=== PATIENT | male | born 1960 | race Caucasian/White ===

== ENCOUNTER 2017-02-21 04:09 | Inpatient (IN) | payer BC ==
[2017-02-21] MEDS ORDERED: Morphine 2 MG/ML Syringe IVPUSH ONE (04:35)
[2017-02-21] MEDS ORDERED: Ondansetron 4 MG Tab.DIS PO ONE (04:36)
[2017-02-21] MEDS ORDERED: Morphine 10 MG/ML Syringe SUBCUT STA (04:48)
--- NOTE | 2017-02-21 04:53 | EDM.PDOC ---
ED HPI GI/ABDOMINAL - General Chief Complaint: Abdominal Pain Stated Complaint: ABD PAIN Time Seen by Provider: 02/21/17 04:26 Source: Reports: Patient - History of Present Illness INITIAL COMMENTS - FREE TEXT/NARRATIVE: This is a 56yo M here for left lower quadrant abdominal pain that started abruptly around 3am. Patient states the pain is 9/10 and fluctuates to a 6/10 and back. He states he ate a [employer] seafood sub in the evening and drank some milk at night but threw the milk up. He is nauseated and curled in pain. Patient denies chest pain, denies sob. He denies any recent abnormal BM. Symptom Onset Date: 02/21/17 Symptom Onset Time: 03:00 Timing/Duration: Reports: Getting worse Location: LLQ Quality: Reports: ache Severity: severe Associated Symptoms: Reports: nausea/vomiting - Related Data Allergies/ADRs: Allergies Allergy/AdvReac Type Severity Reaction Status Date / Time No Known Allergies Allergy Verified 10/17/16 11:28 Home Meds: Home Meds Aspirin/Calcium Carbonate/Mag [Aspirin Buffered 325 mg Tab] 325 mg PO DAILY [History] Citalopram Hydrobromide [Citalopram HBr] 10 mg PO BEDTIME 02/21/17 [History] Lisinopril 20 mg PO BEDTIME 02/21/17 [History] Tamsulosin [Flomax] 0.4 mg PO BEDTIME 02/21/17 [History] atorvaSTATin Calcium [Atorvastatin Calcium] 80 mg PO BEDTIME 02/21/17 [History] metFORMIN HCl [Metformin HCl] 500 mg PO BIDMEALS 02/21/17 [History] Amoxicillin/Potassium Clav [Augmentin 875-125 Tablet] 1 each PO BID #20 tablet 02/22/17 [Rx] metroNIDAZOLE [Metronidazole] 500 mg PO TID #30 tablet 02/22/17 [Rx] Past Medical History Cardiovascular History: Reports: High cholesterol, Hypertension Genitourinary History: Reports: Renal calculus Neurological History: Reports: TIA Psychiatric History: Reports: Depression Endocrine/Metabolic History: Reports: Diabetes, type II - Past Surgical History GI Surgical History: Reports: Appendectomy, Colonoscopy Social & Family History - Tobacco Use Smoking Status *Q: Current Every Day Smoker Years of Tobacco use: 34 Packs/Tins Daily: 0.3 - Recreational Drug Use Recreational Drug Use: No ED ROS GENERAL - Review of Systems Review Of Systems: ROS reveals no pertinent complaints other than HPI. ED EXAM, GI/ABD - Physical Exam Exam: See Below Exam Limited By: No limitations General Appearance: alert, WD/WN, moderate distress, severe distress Eyes: bilateral: EOMI Ears: normal external exam Nose: normal inspection Throat/Mouth: Normal inspection Head: atraumatic, normocephalic Neck: normal inspection Respiratory/Chest: no respiratory distress, lungs clear, normal breath sounds Cardiovascular: normal peripheral pulses, regular rate, rhythm GI/Abdominal: normal bowel sounds, soft, tenderness Back Exam: normal inspection, full range of motion Extremities: normal inspection, normal range of motion, non-tender Neurological: alert, oriented, CN II-XII intact, normal cognition, normal gait, normal reflexes, no motor/sensory deficits Psychiatric: normal affect, normal mood Skin Exam: Warm, Dry, Intact Course - Vital Signs Last Recorded V/S: Last Vital Signs Temp 36.6 C 02/22/17 12:45 Pulse 78 02/22/17 12:45 Resp 16 02/22/17 12:45 BP 125/62 02/22/17 12:45 Pulse Ox 98 02/22/17 12:45 - Orders/Labs/Meds Meds: Medications Discontinued Medications Generic Name Dose Route Start Last Admin Trade Name Esteban PRN Reason Stop Dose Admin Hydromorphone HCl 4 mg 02/21/17 05:07 02/21/17 05:27 Dilaudid IVPUSH 02/21/17 05:08 4 mg ONETIME ONE Administration Hydromorphone HCl Confirm 02/21/17 05:12 Dilaudid Administered 02/21/17 05:13 Dose 4 mg .ROUTE .STK-MED ONE Hydromorphone HCl 4 mg 02/21/17 05:30 02/21/17 17:48 Dilaudid IV 2 mg Q2H PRN Administration Pain (severe 7-10) Sodium Chloride 1,000 mls @ 200 mls/hr 02/21/17 05:15 02/21/17 22:34 Normal Saline IV 200 mls/hr ASDIRECTED IKE Administration Ceftriaxone Sodium 1 gm/ 50 mls @ 200 mls/hr 02/21/17 05:45 02/21/17 06:53 Sodium Chloride IV 200 mls/hr Q24H IKE Administration Metronidazole 500 mg/ Premix 100 mls @ 100 mls/hr 02/21/17 05:45 02/21/17 16: 28 IV 100 mls/hr Q8H IKE Administration Ceftriaxone Sodium 1 gm/ 50 mls @ 200 mls/hr 02/22/17 08:00 02/22/17 07:34 Sodium Chloride IV 200 mls/hr Q24H IKE Administration Metronidazole 500 mg/ Premix 100 mls @ 100 mls/hr 02/21/17 22:00 02/22/17 05: 59 IV 100 mls/hr Q8H IKE Administration Metronidazole Confirm 02/21/17 21:56 02/21/17 22:31 Flagyl 500 Mg In Ns 100 Ml Administered 02/21/17 21:57 Not Given Dose 100 mls @ as directed .ROUTE .STK-MED ONE Morphine Sulfate 4 mg 02/21/17 04:35 02/21/17 04:35 Morphine IVPUSH 02/21/17 04:36 4 mg ONETIME ONE Administration Morphine Sulfate 6 mg 02/21/17 04:48 02/21/17 04:50 Morphine SUBCUT 02/21/17 04:49 6 mg NOW STA Administration Ondansetron HCl 4 mg 02/21/17 04:36 02/21/17 04:35 Zofran Odt PO 02/21/17 04:37 4 mg ONETIME ONE Administration Ondansetron HCl 4 mg 02/21/17 05:10 02/21/17 21:30 Zofran IVPUSH 4 mg Q4H PRN Administration Nausea/Vomiting Sodium Chloride 10 ml 02/21/17 05:30 02/22/17 10:06 Saline Flush FLUSH 10 ml ASDIRECTED PRN Administration Keep Vein Open Departure - Departure Time of Disposition: 04:30 Disposition: Admitted As Inpatient 67 Condition: fair Clinical Impression: Enteritis, Ileus Abdominal pain Qualifiers: Abdominal location: left lower quadrant Qualified Code(s): R10.32 - Left lower quadrant pain - Problem List & Annotations (1) Enteritis SNOMED Code(s): 25487821 Code(s): K52.9 - NONINFECTIVE GASTROENTERITIS AND COLITIS, UNSPECIFIED Status: Acute Priority: High (2) Ileus SNOMED Code(s): 403230368 Code(s): K56.7 - ILEUS, UNSPECIFIED Status: Resolved Priority: High (3) Leukocytosis SNOMED Code(s): 886893256, 849054658 Code(s): D72.829 - ELEVATED WHITE BLOOD CELL COUNT, UNSPECIFIED Status: Acute Priority: Medium (4) Abdominal pain SNOMED Code(s): 67064907 Code(s): R10.9 - UNSPECIFIED ABDOMINAL PAIN Status: Acute Priority: High Qualifiers: Abdominal location: left lower quadrant Qualified Code(s): R10.32 - Left lower quadrant pain - Problem List Review Problem List Initiated/Reviewed/Updated: Yes - Assessment/Plan Plan: Patient admitted for IV fluids, antibiotics and pain management. Counseled on Enteritis and complications, antibiotics use and side effects, pain management and NPO.
[2017-02-21] MEDS ORDERED: HYDROmorphone 2 MG/ML Syringe IVPUSH ONE (05:07)
[2017-02-21] MEDS ORDERED: HYDROmorphone 4 MG/ML Syringe ONE (05:12)
[2017-02-21] MEDS ORDERED: Sodium Chloride 0.9% 10 ML Syringe FLUSH PRN (05:30)
[2017-02-21] MEDS: Sodium Chloride 0.9% 1,000 ML IV SCH ×3 (05:31→22:34)
[2017-02-21] MEDS ORDERED: cefTRIAXone 1 GM in Sodium Chloride 0.9% 50 ML IV SCH (05:45)
[2017-02-21] MEDS: HYDROmorphone 2 MG/ML Syringe IV PRN ×3 (06:35→17:48)
[2017-02-21] MEDS: metroNIDAZOLE/Normal Saline 500 MG in Premix Bag 1 BAG IV SCH ×3 (07:37→21:57)
--- NOTE | 2017-02-21 08:35 | CT ---
DATE OF SERVICE: 02/21/2017 CLINICAL DATA: Abd pain left lower quad. UNENHANCED ABDOMEN AND PELVIC CT Multislice acquisition through the abdomen and pelvis without IV or oral contrast was performed. Comparison is made to a prior exam dated 06/05/2010. The lung bases are clear. The unenhanced liver appears normal. The gallbladder appears normal. The spleen appears normal. The pancreas appears normal. The right and left adrenals appear normal. The right and left kidneys appear normal. No nephrocalcinosis or nephrolithiasis. No hydronephrosis or hydroureter. The bladder is fluid filled and appears normal. The appendix is not visualized. No definite evidence of appendicitis. There are multiple fluid filled loops of small bowel within the right lower abdomen and pelvis with apparent mural thickening. There is also fat stranding and fat infiltration of the adjacent mesentery. They are not dilated. A localized ileus or early or partial obstruction should be considered. Other infectious or inflammatory processes or even ischemia should at least be considered. No pneumatosis. No free air. No free fluid. No adenopathy. No aortic aneurysm. There are bilateral fat containing inguinal hernias. No other significant findings. [id number] [facility]
[2017-02-21] MEDS: Ondansetron 4 MG/2 ML SDV IVPUSH PRN ×3 (09:25→21:30)
[2017-02-21] MEDS ORDERED: metroNIDAZOLE/Normal Saline 100 ML ONE (21:56)
--- NOTE | 2017-02-22 05:57 | PCM.PN ---
- General Info Date of Service: 02/22/17 Subjective Update: Patient states his symptoms have mostly resolved and he feels basically normal. He denies any abdominal pain but does feel some discomfort he attributes to vomiting. He states his appetite has improved and has been doing a trial of clear liquids since very early this AM. Patient has been tolerating liquids. Patient has only had one pain medication use since very early this am and has not needed another one since. - Review of Systems General: Reports: No Symptoms HEENT: Reports: no symptoms Pulmonary: Reports: no symptoms Cardiovascular: Reports: No Symptoms Gastrointestinal: Reports: Abdominal pain Genitourinary: Reports: no symptoms Musculoskeletal: Reports: no symptoms Skin: Reports: no symptoms Neurological: Reports: No Symptoms - Patient Data Vitals - most recent: Last Vital Signs Temp 36.9 C 02/22/17 01:00 Pulse 86 02/22/17 01:00 Resp 16 02/22/17 01:00 BP 129/72 02/22/17 01:00 Pulse Ox 98 02/22/17 01:00 Weight - most recent: 113.398 kg I&O - last 24 hours: Intake & Output 02/21/17 02/21/17 02/22/17 14:59 22:59 06:59 Intake Total 840 Output Total 1440 Balance -600 Lab Results last 24 hrs: Laboratory Results - last 24 hr 02/21/17 02/21/17 02/21/17 Range/Units 09:10 09:10 09:10 WBC 22.2 H* (4.0-11.0) K/uL RBC 5.11 (4.50-6.50) M/uL Hgb 15.7 (13.0-18.0) g/dL Hct 47.1 (40.0-54.0) % MCV 92 (76-96) fL MCH 30.7 (27.0-32.0) pg MCHC 33.3 (31.0-35.0) g/dL RDW 14.4 (11.0-16.0) % Plt Count 288 (150-400) K/uL MPV 10.9 H (6.0-10.0) fL Neut % (Auto) 89.6 H (45.0-70.0) % Lymph % (Auto) 6.0 L (20.0-40.0) % Morgan % (Auto) 4.2 (3.0-10.0) % Eos % (Auto) 0.0 L (1.0-5.0) % Baso % (Auto) 0.2 (0.0-0.5) % Neut # (Auto) 19.86 H (2.00-7.50) K/uL Lymph # (Auto) 1.32 L (1.50-4.00) K/uL Morgan # (Auto) 0.94 H (0.20-0.80) K/uL Eos # (Auto) 0.01 L (0.04-0.40) K/uL Baso # (Auto) 0.05 (0.02-0.10) K/uL Sodium 141 (136-145) mmol/L Potassium 4.2 (3.5-5.1) mmol/L Chloride 105 (98-107) mmol/L Carbon Dioxide 26.3 (21.0-32.0) mmol/L Anion Gap 13.9 (5.0-15.0) mmol/L BUN 17 D (8-26) mg/dL Creatinine 0.90 (0.70-1.30) mg/dL Est Cr Clr Drug Dosing 83.69 mL/min Estimated GFR (MDRD) > 60 (>60) MLS/MIN BUN/Creatinine Ratio 18.9 (6-25) Glucose 186 H D (74-100) mg/dL Hemoglobin A1c (4.5-6.2) % Calcium 8.1 L (8.5-10.1) mg/dL Magnesium 1.6 L (1.8-2.4) mg/dL Total Bilirubin 0.2 D (0.0-1.0) mg/dL AST 24 (15-37) U/L ALT 46 (12-78) U/L Alkaline Phosphatase 71 (46-116) U/L Lactate Dehydrogenase 241 H (85-227) U/L Total Protein 6.7 (6.4-8.2) g/dL Albumin 3.4 (3.4-5.0) g/dL Globulin 3.3 (2.2-4.2) g/dL Albumin/Globulin Ratio 1.0 (0.8-2.0) Lipase (73-393) U/L 04/15/17 04/15/17 Range/Units 09:10 09:10 WBC (4.0-11.0) K/uL RBC (4.50-6.50) M/uL Hgb (13.0-18.0) g/dL Hct (40.0-54.0) % MCV (76-96) fL MCH (27.0-32.0) pg MCHC (31.0-35.0) g/dL RDW (11.0-16.0) % Plt Count (150-400) K/uL MPV (6.0-10.0) fL Neut % (Auto) (45.0-70.0) % Lymph % (Auto) (20.0-40.0) % Morgan % (Auto) (3.0-10.0) % Eos % (Auto) (1.0-5.0) % Baso % (Auto) (0.0-0.5) % Neut # (Auto) (2.00-7.50) K/uL Lymph # (Auto) (1.50-4.00) K/uL Morgan # (Auto) (0.20-0.80) K/uL Eos # (Auto) (0.04-0.40) K/uL Baso # (Auto) (0.02-0.10) K/uL Sodium (136-145) mmol/L Potassium (3.5-5.1) mmol/L Chloride (98-107) mmol/L Carbon Dioxide (21.0-32.0) mmol/L Anion Gap (5.0-15.0) mmol/L BUN (8-26) mg/dL Creatinine (0.70-1.30) mg/dL Est Cr Clr Drug Dosing mL/min Estimated GFR (MDRD) (>60) MLS/MIN BUN/Creatinine Ratio (6-25) Glucose (74-100) mg/dL Hemoglobin A1c 6.2 (4.5-6.2) % Calcium (8.5-10.1) mg/dL Magnesium (1.8-2.4) mg/dL Total Bilirubin (0.0-1.0) mg/dL AST (15-37) U/L ALT (12-78) U/L Alkaline Phosphatase (46-116) U/L Lactate Dehydrogenase (85-227) U/L Total Protein (6.4-8.2) g/dL Albumin (3.4-5.0) g/dL Globulin (2.2-4.2) g/dL Albumin/Globulin Ratio (0.8-2.0) Lipase 73 (73-393) U/L Med Orders - Current: Current Medications Hydromorphone HCl (Dilaudid) 4 mg IV Q2H PRN PRN Reason: Pain (severe 7-10) Last Admin: 02/21/17 17:48 Dose: 2 mg Sodium Chloride (Normal Saline) 1,000 mls @ 200 mls/hr IV ASDIRECTED IKE Last Admin: 02/21/17 22:34 Dose: 200 mls/hr Ceftriaxone Sodium 1 gm/ (Sodium Chloride) 50 mls @ 200 mls/hr IV Q24H IKE Metronidazole 500 mg/ Premix 100 mls @ 100 mls/hr IV Q8H [facility] Last Admin: 02/21/17 21:57 Dose: 100 mls/hr Ondansetron HCl (Zofran) 4 mg IVPUSH Q4H PRN PRN Reason: Nausea/Vomiting Last Admin: 02/21/17 21:30 Dose: 4 mg Sodium Chloride (Saline Flush) 10 ml FLUSH ASDIRECTED PRN PRN Reason: Keep Vein Open Discontinued Medications Hydromorphone HCl (Dilaudid) 4 mg IVPUSH ONETIME ONE Stop: 02/21/17 05:08 Last Admin: 02/21/17 05:27 Dose: 4 mg Hydromorphone HCl (Dilaudid) Confirm Administered Dose 4 mg .ROUTE .STK-MED ONE Stop: 02/21/17 05:13 Ceftriaxone Sodium 1 gm/ (Sodium Chloride) 50 mls @ 200 mls/hr IV Q24H [facility] Last Admin: 02/21/17 06:53 Dose: 200 mls/hr Metronidazole 500 mg/ Premix 100 mls @ 100 mls/hr IV Q8H [facility] Last Admin: 02/21/17 16:28 Dose: 100 mls/hr Metronidazole (Flagyl 500 Mg In Ns 100 Ml) Confirm Administered Dose 100 mls @ as directed .ROUTE .STK-MED ONE Stop: 02/21/17 21:57 Last Admin: 02/21/17 22:31 Dose: Not Given Morphine Sulfate (Morphine) 4 mg IVPUSH ONETIME ONE Stop: 02/21/17 04:36 Last Admin: 02/21/17 04:35 Dose: 4 mg Morphine Sulfate (Morphine) 6 mg SUBCUT NOW STA Stop: 02/21/17 04:49 Last Admin: 02/21/17 04:50 Dose: 6 mg Ondansetron HCl (Zofran Odt) 4 mg PO ONETIME ONE Stop: 02/21/17 04:37 Last Admin: 02/21/17 04:35 Dose: 4 mg - Exam General: alert, oriented, cooperative HEENT: Pupils equal, Pupils reactive Neck: supple Lungs: Clear to auscultation, Normal respiratory effort Cardiovascular: Regular Rate, Regular Rhythm Abdomen: bowel sounds present, soft, no tenderness Back Exam: normal inspection, full range of motion Extremities: no edema - Problem List & Annotations (1) Abdominal pain SNOMED Code(s): 54409645 Code(s): R10.9 - UNSPECIFIED ABDOMINAL PAIN Status: Acute Priority: High Qualifiers: Abdominal location: left lower quadrant Qualified Code(s): R10.32 - Left lower quadrant pain (2) Enteritis SNOMED Code(s): 47830106 Code(s): K52.9 - NONINFECTIVE GASTROENTERITIS AND COLITIS, UNSPECIFIED Status: Acute Priority: High (3) Ileus SNOMED Code(s): 946451045 Code(s): K56.7 - ILEUS, UNSPECIFIED Status: Acute (4) Leukocytosis SNOMED Code(s): 857719344, 092758574 Code(s): D72.829 - ELEVATED WHITE BLOOD CELL COUNT, UNSPECIFIED Status: Acute Priority: Medium - Problem List Review Problem List Initiated/Reviewed/Updated: Yes - My Orders Last 24 Hours: My Active Orders 02/21/17 08:00 CULTURE MRSA SURVEY [RM] Routine 02/21/17 22:00 metroNIDAZOLE/Normal Saline [Flagyl 500 MG in NS 100 ML] 500 mg Premix Bag 1 bag IV Q8H 02/22/17 08:00 cefTRIAXone [Rocephin] 1 gm Sodium Chloride 0.9% [Normal Saline] 50 ml IV Q24H - Plan Plan:: We will repeat labs later today. Advance diet to soft foods. Continue to monitor for pain and nausea. Re-evaluation today.
[2017-02-22] MEDS: metroNIDAZOLE/Normal Saline 500 MG in Premix Bag 1 BAG IV SCH (05:59)
[2017-02-22] MEDS ORDERED: cefTRIAXone 1 GM in Sodium Chloride 0.9% 50 ML IV SCH (08:00)
--- NOTE | 2017-02-22 11:51 | PCM.DCSUM1 ---
Discharge Summary - Hospital Course Brief History: Patient has had a tremendous improvement since the start of antibiotics. Patient denies any further pain. Patient states the nausea and vomiting has fully resolved. He is doing well on current soft foods. He has had a recent BM and plenty of gas. - Discharge Data Discharge Date: 02/22/17 Discharge Disposition: Home, Self-Care 01 Condition: Good - Discharge Diagnosis/Problem(s) (1) Enteritis SNOMED Code(s): 25160719 ICD Code: K52.9 - NONINFECTIVE GASTROENTERITIS AND COLITIS, UNSPECIFIED Status: Acute Priority: High (2) Ileus SNOMED Code(s): 171446328 ICD Code: K56.7 - ILEUS, UNSPECIFIED Status: Resolved Priority: High (3) Leukocytosis SNOMED Code(s): 200705025, 429940185 ICD Code: D72.829 - ELEVATED WHITE BLOOD CELL COUNT, UNSPECIFIED Status: Acute Priority: Medium - Patient Instructions Diet: GI Soft/Low Residue/Low Fiber, Mechanical Soft Diet, Other: slowly advance as directed Activity: As Tolerated Driving: Do Not Drive - Discharge Plan Prescriptions/Med Rec: Amoxicillin/Potassium Clav [Augmentin 875-125 Tablet] 1 each PO BID #20 tablet metroNIDAZOLE [Metronidazole] 500 mg PO TID #30 tablet Home Medications: Home Meds Aspirin/Calcium Carbonate/Mag [Aspirin Buffered 325 mg Tab] 325 mg PO DAILY [History] Citalopram Hydrobromide [Citalopram HBr] 10 mg PO BEDTIME 02/21/17 [History] Lisinopril 20 mg PO BEDTIME 02/21/17 [History] Tamsulosin [Flomax] 0.4 mg PO BEDTIME 02/21/17 [History] atorvaSTATin Calcium [Atorvastatin Calcium] 80 mg PO BEDTIME 02/21/17 [History] metFORMIN HCl [Metformin HCl] 500 mg PO BIDMEALS 02/21/17 [History] Amoxicillin/Potassium Clav [Augmentin 875-125 Tablet] 1 each PO BID #20 tablet 02/22/17 [Rx] metroNIDAZOLE [Metronidazole] 500 mg PO TID #30 tablet 02/22/17 [Rx] Patient Handouts: Amoxicillin; Clavulanic Acid tablets, Food Choices to Help Relieve Diarrhea, Adult, Rehydration, Elderly, Low-Fiber Diet, Bloody Diarrhea, Metronidazole tablets or capsules Forms: ED Department Discharge, Return to Work/School Form - Discharge Summary/Plan Comment DC Time >30 min.: Yes Discharge Summary/Plan Comment: Counseled on recovery and close monitoring and f/u in clinic this week. Antibiotics sent to Pharmacy. Counseled on f/u in clinic or ER as needed if any symptoms return. - General Info Date of Service: 02/22/17 Functional Status: Reports: pain controlled, tolerating diet, ambulating, urinating - Review of Systems General: Reports: No Symptoms HEENT: Reports: no symptoms Pulmonary: Reports: no symptoms Cardiovascular: Reports: No Symptoms Gastrointestinal: Reports: No symptoms Genitourinary: Reports: no symptoms Musculoskeletal: Reports: no symptoms Skin: Reports: no symptoms Neurological: Reports: No Symptoms - Patient Data Vitals - Most Recent: Last Vital Signs Temp 36.9 C 02/22/17 09:00 Pulse 78 02/22/17 09:00 Resp 16 02/22/17 09:00 BP 122/72 02/22/17 09:00 Pulse Ox 98 02/22/17 09:00 Weight - Most Recent: 113.398 kg I&O - Last 24 hours: Intake & Output 02/21/17 02/22/17 02/22/17 22:59 06:59 14:59 Intake Total 840 2500 680 Output Total 1440 650 Balance -600 1850 680 Lab Results - Last 24 hrs: Laboratory Results - last 24 hr 02/22/17 02/22/17 Range/Units 09:15 09:15 WBC 13.1 H D (4.0-11.0) K/uL RBC 4.17 L (4.50-6.50) M/uL Hgb 13.0 (13.0-18.0) g/dL Hct 38.9 L (40.0-54.0) % MCV 93 (76-96) fL MCH 31.2 (27.0-32.0) pg MCHC 33.4 (31.0-35.0) g/dL RDW 14.2 (11.0-16.0) % Plt Count 225 D (150-400) K/uL MPV 10.1 H (6.0-10.0) fL Neut % (Auto) 74.9 H (45.0-70.0) % Lymph % (Auto) 17.7 L (20.0-40.0) % Camp % (Auto) 6.7 (3.0-10.0) % Eos % (Auto) 0.4 L (1.0-5.0) % Baso % (Auto) 0.3 (0.0-0.5) % Neut # (Auto) 9.81 H (2.00-7.50) K/uL Lymph # (Auto) 2.31 (1.50-4.00) K/uL Camp # (Auto) 0.87 H (0.20-0.80) K/uL Eos # (Auto) 0.05 (0.04-0.40) K/uL Baso # (Auto) 0.04 (0.02-0.10) K/uL Sodium 128 L (136-145) mmol/L Potassium 3.0 L D (3.5-5.1) mmol/L Chloride 101 (98-107) mmol/L Carbon Dioxide 24.3 (21.0-32.0) mmol/L Anion Gap 5.7 (5.0-15.0) mmol/L BUN 17 (8-26) mg/dL Creatinine 1.01 (0.70-1.30) mg/dL Est Cr Clr Drug Dosing 74.57 mL/min Estimated GFR (MDRD) > 60 (>60) MLS/MIN BUN/Creatinine Ratio 16.8 (6-25) Glucose 181 H (74-100) mg/dL Calcium 7.8 L (8.5-10.1) mg/dL Med Orders - Current: Current Medications Hydromorphone HCl (Dilaudid) 4 mg IV Q2H PRN PRN Reason: Pain (severe 7-10) Last Admin: 02/21/17 17:48 Dose: 2 mg Ceftriaxone Sodium 1 gm/ (Sodium Chloride) 50 mls @ 200 mls/hr IV Q24H [facility] Last Admin: 02/22/17 07:34 Dose: 200 mls/hr Metronidazole 500 mg/ Premix 100 mls @ 100 mls/hr IV Q8H [facility] Last Admin: 02/22/17 05:59 Dose: 100 mls/hr Ondansetron HCl (Zofran) 4 mg IVPUSH Q4H PRN PRN Reason: Nausea/Vomiting Last Admin: 02/21/17 21:30 Dose: 4 mg Sodium Chloride (Saline Flush) 10 ml FLUSH ASDIRECTED PRN PRN Reason: Keep Vein Open Last Admin: 02/22/17 10:06 Dose: 10 ml Discontinued Medications Hydromorphone HCl (Dilaudid) 4 mg IVPUSH ONETIME ONE Stop: 02/21/17 05:08 Last Admin: 02/21/17 05:27 Dose: 4 mg Hydromorphone HCl (Dilaudid) Confirm Administered Dose 4 mg .ROUTE .STK-MED ONE Stop: 02/21/17 05:13 Sodium Chloride (Normal Saline) 1,000 mls @ 200 mls/hr IV ASDIRECTED [facility] Last Admin: 02/21/17 22:34 Dose: 200 mls/hr Ceftriaxone Sodium 1 gm/ (Sodium Chloride) 50 mls @ 200 mls/hr IV Q24H [facility] Last Admin: 02/21/17 06:53 Dose: 200 mls/hr Metronidazole 500 mg/ Premix 100 mls @ 100 mls/hr IV Q8H [facility] Last Admin: 02/21/17 16:28 Dose: 100 mls/hr Metronidazole (Flagyl 500 Mg In Ns 100 Ml) Confirm Administered Dose 100 mls @ as directed .ROUTE .STK-MED ONE Stop: 02/21/17 21:57 Last Admin: 02/21/17 22:31 Dose: Not Given Morphine Sulfate (Morphine) 4 mg IVPUSH ONETIME ONE Stop: 02/21/17 04:36 Last Admin: 02/21/17 04:35 Dose: 4 mg Morphine Sulfate (Morphine) 6 mg SUBCUT NOW STA Stop: 02/21/17 04:49 Last Admin: 02/21/17 04:50 Dose: 6 mg Ondansetron HCl (Zofran Odt) 4 mg PO ONETIME ONE Stop: 02/21/17 04:37 Last Admin: 02/21/17 04:35 Dose: 4 mg - Exam General: Reports: alert, oriented HEENT: Reports: Pupils equal, Pupils reactive, EOMI Neck: Reports: supple Lungs: Reports: Clear to auscultation, Normal respiratory effort Cardiovascular: Reports: Regular Rate, Regular Rhythm Abdomen: Reports: bowel sounds present, soft, no tenderness (Male) Exam: No hernia Back Exam: Reports: normal inspection Extremities: Reports: no edema Skin: Reports: warm, dry, intact *Q Meaningful Use (DIS) - VTE *Q VTE Criteria *Q: - Stroke *Q Stroke Criteria *Q: - AMI *Q AMI Criteria *Q:
[2017-02-22 13:03] VITALS: BP 125/62
== END 2017-02-22 12:45 | disposition home or self-care (01) | DRG 249 ==
LOC: LB.ED 04:09 → LB.MS 05:30 → UNDOADMIN 05:45
PROVIDERS: ADMIT Family Medicine; ATTEND Family Medicine
DX: K52.9 Noninfective gastroenteritis and colitis, unspecified (principal); K56.7 Ileus, unspecified; F17.210 Nicotine dependence, cigarettes, uncomplicated; I10 Essential (primary) hypertension; E78.00 Pure hypercholesterolemia, unspecified; Z86.73 Personal history of transient ischemic attack (TIA), and cerebral infarction without residual deficits; F32.9 Major depressive disorder, single episode, unspecified; E11.9 Type 2 diabetes mellitus without complications; D72.829 Elevated white blood cell count, unspecified; Z79.82 Long term (current) use of aspirin; Z79.84 Long term (current) use of oral hypoglycemic drugs
CPT/HCPCS: 36415; 74176; 80048; 80053; 83036; 83615; 83690; 83735; 85025; 96372; 96374; 96375; 99285-25; A9270-GY; J0696; J1170; J2270; J2405; J7040; J7050

== ENCOUNTER 2020-03-15 16:20 | Emergency (ER) | payer BC ==
[2020-03-15] MEDS ORDERED: Diphtheria,Pertussis(Acell),Tetanus Vaccine 0.5 ML SDV inactive IM ONE (16:21)
--- NOTE | 2020-03-15 16:55 | EDM.PDOC ---
ED HPI GENERAL MEDICAL PROBLEM - General Time Seen by Provider: 03/15/20 16:21 - History of Present Illness INITIAL COMMENTS - FREE TEXT/NARRATIVE: My patient presents to the emergency department primarily for a Tdap and an oral antimicrobial prescription. He states that he was out checking his [place] traps. He feels like there were some bald [place] that were probably feeding on the beavers. 1 where another, and [place] got caught in his [place] trap. He was trying to release it, and it snapped at him with its wayne. This hit the mid aspect of his ulnar index finger on the right creating a through and through puncture wound. There was no obvious gross contamination or foreign body. He is really here mainly to want to be on the look out for symptoms of infection. He denies any paresthesias. He otherwise had no other injuries. - Related Data Allergies Allergy/AdvReac Type Severity Reaction Status Date / Time No Known Allergies Allergy Verified 10/17/16 11:28 Home Meds: Home Meds Aspirin/Calcium Carbonate/Mag [Aspirin Buffered 325 mg Tab] 325 mg PO DAILY [History] Citalopram Hydrobromide [Citalopram HBr] 10 mg PO BEDTIME 02/21/17 [History] Lisinopril 20 mg PO BEDTIME 02/21/17 [History] Tamsulosin [Flomax] 0.4 mg PO BEDTIME 02/21/17 [History] atorvaSTATin Calcium [Atorvastatin Calcium] 80 mg PO BEDTIME 02/21/17 [History] metFORMIN HCl [Metformin HCl] 500 mg PO BIDMEALS 02/21/17 [History] Amoxicillin/Potassium Clav [Augmentin 875-125 Tablet] 1 each PO BID #20 tablet 02/22/17 [Rx] metroNIDAZOLE [Metronidazole] 500 mg PO TID #30 tablet 02/22/17 [Rx] Past Medical History Cardiovascular History: Reports: High Cholesterol, Hypertension Respiratory History: Reports: Sleep Apnea Genitourinary History: Reports: Renal Calculus Neurological History: Reports: TIA Psychiatric History: Reports: Depression Endocrine/Metabolic History: Reports: Diabetes, Type II - Past Surgical History GI Surgical History: Reports: Appendectomy, Colonoscopy Social & Family History - Family History Family Medical History: Noncontributory - Caffeine Use Caffeine Use: Reports: None ED ROS GENERAL - Review of Systems Review Of Systems: See Below ED EXAM, GENERAL - Physical Exam Exam: See Below Exam Limited By: No Limitations General Appearance: Alert, WD/WN, No Apparent Distress Head: Atraumatic, Normocephalic Respiratory/Chest: No Respiratory Distress Extremities: Other (Inspection of his right/dominant hand reveals an extremely tiny puncture wound without any evidence of contamination and this appears to exit along the palmar aspect of his ulnar index finger. There is slight swelling. Active range of motion is complete in terms of complete dorsiflexion. 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 Keep affected area clean and dry, and be sure to monitor for signs and symptoms of infection present including: increased redness, increased swelling, increased pain or tenderness to touch, foul drainage and/or fever present. Should any of these symptoms occur, return for further evaluation. Call with any questions.
[2020-03-15 18:53] VITALS: PULSE 88
== END 2020-03-15 16:45 | disposition home or self-care (01) ==
LOC: LB.ED 16:20
DX: S61.230A Puncture wound without foreign body of right index finger without damage to nail, initial encounter (principal); E78.00 Pure hypercholesterolemia, unspecified; I10 Essential (primary) hypertension; Z86.73 Personal history of transient ischemic attack (TIA), and cerebral infarction without residual deficits; F32.9 Major depressive disorder, single episode, unspecified; E11.9 Type 2 diabetes mellitus without complications; Z79.84 Long term (current) use of oral hypoglycemic drugs; Z79.82 Long term (current) use of aspirin; Z79.899 Other long term (current) drug therapy; Z23 Encounter for immunization; W61.92XA Struck by other birds, initial encounter
CPT/HCPCS: 90471; 90715; 99283